=== PATIENT | female | born 1980 | race Two or more races ===

== ENCOUNTER 2021-04-08 22:02 | Outpatient (CLI) | payer MEDICAID, OTHER ==
[~2021-04-08] VITALS: Ht 162.6 cm; Wt 104.3 kg
[2021-04-08 22:50] VITALS: BP 118/66
[2021-04-08 23:02] LABS: MICROSCOPIC INDICATED
== END 2021-04-08 23:36 | disposition home or self-care (01) ==
LOC: LDOP 22:02
PROVIDERS: ATTEND Obstetrics & Gynecology
DX: O09.93 Supervision of high risk pregnancy, unspecified, third trimester (principal); O26.893 Other specified pregnancy related conditions, third trimester; R10.9 Unspecified abdominal pain; Z3A.33 33 weeks gestation of pregnancy
CPT/HCPCS: 59025; 81001; 87086

== ENCOUNTER 2021-05-11 00:38 | Inpatient (IN) | payer MEDICAID ==
[~2021-05-11] VITALS: Ht 162.6 cm; Wt 105.5 kg
[2021-05-11 08:17] VITALS: BP 128/77
[2021-05-11] MEDS ORDERED: NEWBORN KIT ONE (08:24)
[2021-05-11] MEDS ORDERED: MISOPROSTOL 200 MCG TABLET ONE (08:24)
[2021-05-11] MEDS ORDERED: LIDOCAINE 1%, 20ML ONE (08:24)
[2021-05-11] MEDS ORDERED: OXYTOCIN 30U/ 0.9% NaCL 500ML 500 ML ONE (08:24)
[2021-05-11] MEDS ORDERED: OXYTOCIN 30U/ 0.9% NaCL 500ML 500 ML IV ONE (09:00)
[2021-05-11] MEDS ORDERED: TERBUTALINE 1 MG/ML, 1ML IVPush PRN (09:00)
[2021-05-11] MEDS ORDERED: TERBUTALINE 1 MG/ML, 1ML SQ PRN (09:00)
[2021-05-11] MEDS ORDERED: ONDANSETRON 2MG/ML, 2ML IVPush PRN ×2 (09:00→19:00)
[2021-05-11] MEDS ORDERED: FENTANYL PF 100 MCG/2ML IV PRN (09:00)
[2021-05-11] MEDS ORDERED: CALCIUM CARBONATE 500 MG TAB.CHEW PO PRN (09:00)
[2021-05-11] MEDS ORDERED: D5%-LACTATED RINGERS 1,000 ML IV SCH (09:00)
[2021-05-11] MEDS ORDERED: LACTATED RINGERS 1,000 ML IV SCH (09:00)
[2021-05-11] MEDS ORDERED: AMPICILLIN 2 GM in SODIUM CHLORIDE 0.9% 100 ML IVPB STA (09:29)
[2021-05-11] MEDS ORDERED: OXYTOCIN 30U/ 0.9% NaCL 500ML 500 ML IV PRN (09:30)
[2021-05-11] MEDS ORDERED: MISOPROSTOL 25 MCG TABLET VG PRN (09:30)
[2021-05-11 10:32] LABS: BASOPHILS % (AUTO) 1 % (0-1); EOSINOPHILS % (AUTO) 0 % (1-7); LYMPHOCYTES % (AUTO) 19 % (22-44); MEAN CORPUSCULAR HEMOGLOBIN 31.4 pg (27.0-34.8); MEAN CORPUSCULAR HGB CONC 34.5 g/dL (32.4-35.8); MEAN PLATELET VOLUME 7.7 fL (7.4-10.4); MONOCYTES % (AUTO) 8 % (2-9); NEUTROPHILS % (AUTO) 72 % (42-75); PLATELET COUNT 247 x10^3/uL (130-400); RED BLOOD COUNT 4.31 x10^6/uL (3.82-5.3); RED CELL DISTRIBUTION WIDTH 15.4 % (9.6-15.2)
[2021-05-11] MEDS: AMPICILLIN 1 GM in SODIUM CHLORIDE 0.9% 100 ML IVPB SCH ×2 (13:55→17:45)
[2021-05-11] MEDS: FENTANYL PF 100 MCG/2ML IVPush PRN ×2 (16:40→17:57)
[2021-05-11] MEDS ORDERED: FENTANYL/BUPIV./NS/PF 250 ML EPIDCONT ONE (18:18)
[2021-05-11] MEDS ORDERED: BUPIVACAINE 0.25% ONE (18:18)
[2021-05-11] MEDS ORDERED: EPHEDRINE 50 MG/ML, 1ML IVPush PRN (19:00)
[2021-05-11] MEDS ORDERED: FENTANYL/BUPIV./NS/PF 250 ML EPIDCONT SCH (19:00)
[2021-05-11] MEDS ORDERED: DIPHENHYDRAMINE 50 MG/ML, 1ML IVPush PRN (19:00)
[2021-05-11] MEDS ORDERED: NALOXONE 0.4 MG/ML, 1ML IVPush PRN (19:00)
[2021-05-11] MEDS ORDERED: LACTATED RINGERS 1,000 ML IVBOLUS PRN (19:00)
[2021-05-11] MEDS: LACTATED RINGERS 1,000 ML IV SCH (19:00)
[2021-05-11] MEDS ORDERED: MISOPROSTOL 200 MCG TABLET PR PRN (21:30)
[2021-05-11] MEDS ORDERED: ONDANSETRON 2MG/ML, 2ML IV PRN (21:30)
[2021-05-11] MEDS ORDERED: TRANEXAMIC ACID 100 MG/ML, 10ML IV ONE (21:30)
[2021-05-11] MEDS ORDERED: OXYTOCIN 30U/ 0.9% NaCL 500ML 500 ML IV SCH ×2 (21:30)
[2021-05-11] MEDS ORDERED: DOCUSATE 100 MG CAPSULE PO PRN (21:30)
[2021-05-11] MEDS ORDERED: MISOPROSTOL 200 MCG TABLET SL PRN (21:30)
[2021-05-11] MEDS ORDERED: OXYcodone IR 5MG TABLET PO PRN (21:30)
[2021-05-11] MEDS ORDERED: CARBOPROST TROMETHAMINE 250 MCG/ML, 1ML IM PRN (21:30)
[2021-05-11] MEDS ORDERED: SIMETHICONE 80 MG CHEW TAB PO PRN (21:30)
[2021-05-11] MEDS ORDERED: OXYTOCIN 10 UNITS/ML, 1ML IM PRN (21:30)
[2021-05-11] MEDS ORDERED: OXYcodone/APAP 5/325MG TABLET PO PRN (21:30)
[2021-05-11] MEDS ORDERED: METHYLERGONOVINE 0.2 MG/ML IM PRN (21:30)
[2021-05-11] MEDS ORDERED: ACETAMINOPHEN 325 MG TABLET PO PRN (21:30)
[2021-05-11 23:45] VITALS: BP 127/78
[2021-05-12 00:45] VITALS: BP 127/78
[2021-05-12] MEDS: IBUPROFEN 800 MG TABLET PO PRN ×3 (01:25→19:41)
[2021-05-12] MEDS: LACTATED RINGERS 1,000 ML IV SCH (03:00)
[2021-05-12 04:30] VITALS: BP 133/86
[2021-05-12 07:29] LABS: BASOPHILS % (AUTO) 1 % (0-1); EOSINOPHILS % (AUTO) 0 % (1-7); LYMPHOCYTES % (AUTO) 17 % (22-44); MEAN CORPUSCULAR HEMOGLOBIN 31.2 pg (27.0-34.8); MEAN CORPUSCULAR HGB CONC 34.2 g/dL (32.4-35.8); MEAN PLATELET VOLUME 7.6 fL (7.4-10.4); MONOCYTES % (AUTO) 7 % (2-9); NEUTROPHILS % (AUTO) 75 % (42-75); PLATELET COUNT 224 x10^3/uL (130-400); RED BLOOD COUNT 3.73 x10^6/uL (3.82-5.3); RED CELL DISTRIBUTION WIDTH 15.4 % (9.6-15.2)
[2021-05-12 07:30] VITALS: BP 128/79
[2021-05-12] MEDS ORDERED: PRENATAL VIT/IRON/FA 1 EACH TABLET PO SCH (09:00)
[2021-05-12 11:46] VITALS: BP 135/90
[2021-05-12 16:34] VITALS: BP 133/85
== END 2021-05-12 21:37 | disposition home or self-care (01) | DRG 807 ==
LOC: LDIP 08:07 → 2NW 23:12
PROVIDERS: ADMIT Obstetrics & Gynecology; ATTEND Obstetrics & Gynecology
PROC: 10E0XZZ Delivery of Products of Conception, External Approach (ICD-10-PCS; principal; 2021-05-11)
PROC: 0KQM0ZZ Repair Perineum Muscle, Open Approach (ICD-10-PCS; 2021-05-11)
PROC: 3E0R3BZ Introduction of Anesthetic Agent into Spinal Canal, Percutaneous Approach (ICD-10-PCS; 2021-05-11)
PROC: 00HU33Z Insertion of Infusion Device into Spinal Canal, Percutaneous Approach (ICD-10-PCS; 2021-05-11)
DX: O24.429 Gestational diabetes mellitus in childbirth, unspecified control (principal); Z37.0 Single live birth; Z20.822 Contact with and (suspected) exposure to COVID-19; O70.1 Second degree perineal laceration during delivery; Z3A.38 38 weeks gestation of pregnancy
CPT/HCPCS: 36415; 82962; 85025; 86592; 86850; 86900; 87635; G0378; J0290; J3010; J2590; J7120